=== PATIENT | male | born 1995 | race Caucasian/White ===

== ENCOUNTER 2017-05-14 20:07 | Emergency (ER) | payer MEDICAID ==
[2017-05-14] MEDS ORDERED: Lidocaine 1% with EPINEPHrine 1:100,000 20 ML MDV INFILT ONE (20:24)
[2017-05-14] MEDS ORDERED: Take Home: Sulfamethoxazole/Trimethoprim 800-160 MG Tab, 2 Tab Pack PO ONE (20:28)
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
[2017-05-15 05:18] VITALS: BP 119/66
== END 2017-05-14 20:50 | disposition home or self-care (01) ==
LOC: VM.ED 20:07
DX: S30.851A Superficial foreign body of abdominal wall, initial encounter (principal); L08.9 Local infection of the skin and subcutaneous tissue, unspecified; I10 Essential (primary) hypertension; F41.9 Anxiety disorder, unspecified; F31.9 Bipolar disorder, unspecified; F17.200 Nicotine dependence, unspecified, uncomplicated; Z86.73 Personal history of transient ischemic attack (TIA), and cerebral infarction without residual deficits; Z79.899 Other long term (current) drug therapy; Z79.82 Long term (current) use of aspirin; Z88.8 Allergy status to other drugs, medicaments and biological substances; W45.8XXA Other foreign body or object entering through skin, initial encounter
CPT/HCPCS: 10120; 99282; A9270

== ENCOUNTER 2019-10-06 09:22 | Emergency (ER) | payer MEDICAID, MEDICARE ==
[2019-10-06] MEDS ORDERED: OLANZapine 10 MG Vial IM ONE (09:28)
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
[2019-10-06 10:28] LABS: ANION GAP 22.7 mmol/L (10-20); CHLORIDE,CL 97 mmol/L (98-107); SODIUM,NA 137 mmol/L (136-145)
[2019-10-06 10:30] LABS: BUPRENORPHINE,URINE NEGATIVE (NEGATIVE); MARIJUANA,URINE POSITIVE (NEGATIVE); METHYLENEDIOXYMETHAMP,UR NEGATIVE (NEGATIVE)
[2019-10-06 10:31] LABS: PHENCYCLIDINE,URINE NEGATIVE (NEGATIVE)
[2019-10-06] MEDS ORDERED: cefTRIAXone 1 GM Vial IVPUSH ONE (10:31)
[2019-10-06] MEDS ORDERED: Haloperidol Lactate 5 MG/ML SDV IM ONE (10:31)
[2019-10-06] MEDS ORDERED: diphenhydrAMINE 50 MG/ML SDV IM ONE (10:32)
[2019-10-06] MEDS ORDERED: Sodium Chloride 0.9% 1,000 ML IV ONE (10:44)
[2019-10-06] MEDS ORDERED: Piperacillin/Tazobactam 3.375 GM in Sodium Chloride 0.9% 100 ML IV ONE (10:44)
[2019-10-06] MEDS ORDERED: Ketorolac 15 MG/ML SDV IVPUSH ONE (11:19)
[2019-10-06 11:48] VITALS: BP 138/64; PULSE 95
== END 2019-10-06 12:45 | disposition short-term general hospital (02) ==
LOC: VM.ED 09:22
DX: A41.9 Sepsis, unspecified organism (principal); L03.115 Cellulitis of right lower limb; L03.116 Cellulitis of left lower limb; F23 Brief psychotic disorder; F41.9 Anxiety disorder, unspecified; Z86.73 Personal history of transient ischemic attack (TIA), and cerebral infarction without residual deficits; Z88.8 Allergy status to other drugs, medicaments and biological substances
CPT/HCPCS: 36415; 80053; 80305-QW; 81001; 82550; 83605; 85025; 87040; 87077; 87086; 87088; 87147; 87184; 87186; 96361; 96365; 96372; 96375; 99283-GF; 99284-25; J0696; J1200; J1630; J1885; J2543; J3490; J7030; J7050

== ENCOUNTER 2020-09-07 09:15 | Emergency (ER) | payer MEDICARE, MEDICAID ==
[2020-09-07] MEDS ORDERED: Haloperidol Lactate 5 MG/ML SDV IM ONE (09:38)
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
[2020-09-07 11:00] LABS: CHLORIDE,CL 102 mmol/L (98-107); SODIUM,NA 139 mmol/L (136-145)
[2020-09-07 11:06] LABS: ACETAMINOPHEN 0 ug/ml (10-30); ANION GAP 15.3 mmol/L (10-20)
[2020-09-07 11:47] LABS: BARBITURATE SCREEN,URINE NEGATIVE (NEGATIVE); BENZODIAZEPINES SCREEN,URINE NEGATIVE (NEGATIVE); EDDP,URINE SCREEN NEGATIVE (NEGATIVE); METHAMPHETAMINE SCREEN, URINE POSITIVE (NEGATIVE); TCA SCREEN,URINE NEGATIVE (NEGATIVE); THC SCREEN,URINE 50 NG/ML POSITIVE (NEGATIVE)
[2020-09-07] MEDS ORDERED: Take Home: LORazepam 0.5 MG Tab, 2 Tab Pack PO ONE (12:10)
[2020-09-07 20:41] VITALS: BP 145/66; PULSE 100
== END 2020-09-07 12:00 ==
LOC: VM.ED 09:15
DX: F23 Brief psychotic disorder (principal); F15.10 Other stimulant abuse, uncomplicated; I10 Essential (primary) hypertension; F12.10 Cannabis abuse, uncomplicated; Z88.8 Allergy status to other drugs, medicaments and biological substances; Z86.73 Personal history of transient ischemic attack (TIA), and cerebral infarction without residual deficits; Z20.828 Contact with and (suspected) exposure to other viral communicable diseases
CPT/HCPCS: 36415; 80053; 80305-QW; 80307; 81001; 83735; 85025; 86140; 96372; 99284; 99285; J1630; U0002

== ENCOUNTER 2024-07-05 04:29 | Emergency (ER) | payer MEDICARE, MEDICAID ==
[2024-07-05 05:44] LABS: BASOPHILS PERCENT AUTO 0.2 % (0.2-1.2); EOSINOPHILS ABSOLUTE AUTO 0.3 x10^3/uL (0.0-0.5); EOSINOPHILS PERCENT AUTO 1.5 % (0.0-4.0); HEMATOCRIT 47.8 % (40.0-52.0); HEMOGLOBIN 16.2 g/dL (14.0-18.0); IMMATURE GRAN ABSOLUTE AUTO 0.15 x10^3/uL (0.00-0.07); LYMPHOCYTES ABSOLUTE AUTO 4.7 x10^3/uL (1.0-4.8); LYMPHOCYTES PERCENT AUTO 26.3 % (25.0-50.0); MEAN CORPUSCULAR HEMOGLOBIN 29.3 pg (26.0-32.0); MEAN CORPUSCULAR HGB CONC 33.9 g/dL (32.0-36.0); MEAN CORPUSCULAR VOLUME 86.6 fL (78.0-93.0); MONOCYTES ABSOLUTE AUTO 2.1 x10^3/uL (0.0-0.8); NEUTROPHILS ABSOLUTE AUTO 10.6 x10^3/uL (1.8-7.7); NEUTROPHILS PERCENT AUTO 59.2 % (50.0-80.0); PLATELET COUNT,PLT 534 x10^3/uL (130-400); RED BLOOD CELL COUNT 5.52 x10^6/uL (4.5-6.0); WHITE BLOOD CELL COUNT,WBC 17.9 x10^3/uL (4.0-10.0)
[2024-07-05 05:53] LABS: BLOOD UREA NITROGEN,BUN 12 mg/dL (7-18); CALCIUM 9.2 mg/dL (8.5-10.1); CARBON DIOXIDE,CO2 27 mmol/L (21-32); CHLORIDE,CL 104 mmol/L (98-107); EST CRCL DRUG DOSING (CG) 125.58 mL/min; GLUCOSE RANDOM 109 mg/dL (70-99); POTASSIUM,K 3.6 mmol/L (3.5-5.1); SODIUM,NA 143 mmol/L (136-145); TSH ULTRASENSITIVE 1.801 uIU/mL (0.358-3.74)
[2024-07-05 05:55] LABS: ANION GAP 15.6 mmol/L (5-15); ESTIMATED GFR 104 mL/min (>=60); ETHANOL BLOOD MEDICAL < 3 mg/dL (0-3)
[2024-07-05 09:11] VITALS: BP 151/84; PULSE 87
[2024-07-07 16:02] LABS: CALCITONIN 2.8 pg/mL (0.0-7.5)
== END 2024-07-05 08:59 | disposition short-term general hospital (02) ==
LOC: VM.ED 04:29
DX: R41.82 Altered mental status, unspecified (principal); I10 Essential (primary) hypertension; Z88.8 Allergy status to other drugs, medicaments and biological substances
CPT/HCPCS: 36415; 70450; 71045; 80048; 80307; 82308; 84443; 85025; 99284; 99285